=== PATIENT | female | born 1970 | race Caucasian/White ===

== ENCOUNTER 2020-03-21 10:49 | Outpatient (CLI) | payer BC ==
--- NOTE | 2020-03-21 13:17 | MRI ---
MRI ABDOMEN WITHOUT CONTRAST: 03/21/20 HISTORY: Epigastric pain. Negative EGD. FINDINGS: The patient is post cholecystectomy and gastric bypass surgery. The liver, spleen, pancreas, adrenal glands and kidneys have a normal appearance. No abnormal biliary ductal dilatation is seen. No free f luid or lymphadenopathy is identified. The aortic caliber is normal without aneurysmal dilatation. T he bone marrow signal is normal. IMPRESSION: No significant abnormalities are seen. POS: [facility]
== END 2020-03-21 10:50 | disposition home or self-care (01) ==
LOC: MRI 10:49
PROVIDERS: ATTEND Internal Medicine Gastroenterology
DX: R10.13 Epigastric pain (principal)
CPT/HCPCS: 74181